=== PATIENT | male | born 1945 | race Caucasian/White ===

== ENCOUNTER → 2021-08-17 14:11 | Outpatient (CLI) | payer MEDICARE, OTHER, SELFPAY ==
--- NOTE | 2021-08-17 14:28 | DI.ECHO.S_ITS ---
:Reason For Study: Persistent atrial fibrillation : :Ordering Physician: Keira Berry : :Natalia Performed By: Jean-Claude Ochoa : :Referring: KEIRA LOCKWOOD : + + Interpretation Summary The left ventricle is normal in size and wall thickness. Left ventricular ejection fraction is estimated to be 50 +/- 5%. Right ventricular systolic function is mildly reduced. There is severe biatrial enlargement. The right ventricular systolic pressure is estimated to be at least 24 mmHg based on an estimated right atrial pressure of 3 mm Hg. No significant valvular disease. Procedure: A two-dimensional transthoracic echocardiogram with color flow and Doppler was performed. The study quality was technically adequate. Comparison is made with the echocardiogram of 08/21/2005. The patient was in atrial fibrillation with heart rates between 75 - 94 bpm during the exam. Left Ventricle: The left ventricle is normal in size and wall thickness. Left ventricular ejection fraction is estimated to be 50 +/- 5%. There is a mild dyssynchronous contraction pattern, consistent with a conduction abnormality. Diastolic function could not be accurately assessed due to atrial fibrillation. Right Ventricle: The right ventricle is normal size. Right ventricular systolic function is mildly reduced. Atria: There is severe biatrial enlargement. There is no Doppler evidence for an interatrial shunt. Mitral Valve: There is mild mitral annular calcification. There is mild mitral regurgitation. Aortic Valve: The aortic valve is trileaflet. The aortic valve opens well. There is trace aortic regurgitation. Tricuspid Valve: The tricuspid valve is normal. There is mild tricuspid regurgitation. The right ventricular systolic pressure is estimated to be at least 24 mmHg based on an estimated right atrial pressure of 3 mm Hg. Pulmonic Valve: The pulmonic valve is normal in structure and function. Great Vessels: The aortic root is normal size. The ascending aorta is at the upper limits of normal in size. The aortic arch is mildly enlarged. The IVC is of normal diameter and collapses greater than 50% with a sniff. This suggests a low right atrial pressure of 3 mm Hg. Pericardium/ Pleura There is an anterior echo-free space consistent with a fat pad. There is no pleural effusion. MMode/2D Measurements & Calculations LVIDd: 5.3 cm LVOT diam: 2.0 cm LVIDs: 4.0 cm Ao root diam: 3.2 cm FS: 25.1 % asc Aorta Diam: 3.5 cm IVSd: 1.3 cm Ao Arch Diam (Prox Trans): 3.6 cm LVPWd: 1.2 cm LV baer. diameter/BSA (cm/m^2): 2.5 LV sys. diameter/BSA (cm/m^2): 1.9 LA A2 area: 29.4 cm2 RA long axis: 7.9 cm LA A4 area: 31.4 cm2 RA area: 30.0 cm2 LA length (vol): 7.6 cm RA vol: 96.6 ml LA vol: 103.4 ml RA : 45.7 ml/m2 LA vol index: 48.9 ml/m2 TAPSE: 1.5 cm Doppler Measurements & Calculations Ao V2 max: 134.8 cm/sec LVOT Max Binh: 95.5 cm/sec Ao V2 mean: 99.7 cm/sec LV V1 max P.7 mmHg Ao max P.3 mmHg LV V1 VTI: 17.6 cm Ao mean P.3 mmHg SARAI(I,D): 2.3 cm2 Ao V2 VTI: 25.5 cm SARAI(V,D): 2.3 cm2 sev ratio: 0.69 SARAI indexed to BSA (cm^2/m^2): 1.1 MV E max binh: 104.2 cm/sec TR max binh: 227.3 cm/sec Med Peak E' Binh: 11.0 cm/sec TR max P.7 mmHg E/E' med: 9.5 PA V2 max: 85.1 cm/sec Lat Peak E' Binh: 15.5 cm/sec PA V2 mean: 66.7 cm/sec E/E' lat: 6.7 PA mean P.9 mmHg E/e' average: 8.1 PA pr(Accel): 34.0 mmHg SV(LVOT): 57.5 ml Reading Physician:PM
== END ==
PROVIDERS: PCP Family Medicine; Referring Provider Internal Medicine Cardiovascular Disease; Visit Provider Internal Medicine Cardiovascular Disease
DX: I48.19 Other persistent atrial fibrillation (principal); I08.1 Rheumatic disorders of both mitral and tricuspid valves
CPT/HCPCS: 93306

== ENCOUNTER → 2023-02-24 07:47 | Outpatient (CLI) | payer MEDICARE, OTHER, SELFPAY ==
--- NOTE | 2023-02-24 | DI.NM.S_ITS ---
PROCEDURE: NM GASTRIC EMPTYING STUDY RADIOPHARMACEUTICAL: 1 mCi Tc-99m sulfur colloid in an egg sandwich. INDICATIONS: Abdominal distension (gaseous) TECHNIQUE: A Tc-99m labeled sulfur colloid labeled egg sandwich or oatmeal was served to the patient. Anterior and posterior planar images of the abdomen were obtained at 0 minutes and 30 minutes, then at hourly intervals up to 4 hours. The patient was upright and ambulating during the interval. COMPARISON: None. FINDINGS: The stomach has normal size, morphology, and position. There is normal emptying of solid gastric contents from the stomach by visual inspection. No gastroesophageal reflux is visualized. The percentage of tracer retained at specific time points are as follows: Time point Percent gastric retention Normal range 1 hour 100% 30% to 90% 2 hours 65% 60% or less 3 hours 23% 30% or less 4 hours 3.4% 10% or less IMPRESSION: There is delayed graphic emptying at 1-2 hours. Dictated by: Timothy Nguyen M.D. on 02/24/2023 at 15:34 Approved by: Timothy Nguyen M.D. on 02/24/2023 at 15:36
== END ==
PROVIDERS: PCP Internal Medicine; Referring Provider Internal Medicine; Visit Provider Internal Medicine
DX: R14.0 Abdominal distension (gaseous) (principal)
CPT/HCPCS: 78264; A9541